=== PATIENT | male | born 1965 | race American Indian/Alaskan Native ===

== ENCOUNTER 2017-06-20 06:56 | Emergency (ER) | payer OTHER ==
[2017-06-20 07:04] VITALS: BP 138/86; PULSE 70; RESP 20; TEMP 97.8; O2SAT 96
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
== END 2017-06-20 09:06 | disposition home or self-care (01) ==
LOC: C.ER 06:56
DX: S50.01XA Contusion of right elbow, initial encounter (principal); V43.62XA Car passenger injured in collision with other type car in traffic accident, initial encounter; Y92.410 Unspecified street and highway as the place of occurrence of the external cause